=== PATIENT | male | born 1965 | race Caucasian/White ===

== ENCOUNTER 2022-01-06 08:20 | Outpatient (CLI) | payer OTHER | END 2022-01-06 08:21 | disposition home or self-care (01) | LOC: NAV RAD 08:20 | PROVIDERS: ATTEND Family Medicine | DX: M77.8 Other enthesopathies, not elsewhere classified (principal) ==

== ENCOUNTER 2022-02-11 08:36 | Emergency (ER) | payer MEDICAID, OTHER ==
[2022-02-11] MEDS ORDERED: Sodium Chloride 0.9% 100 ML ONE (09:39)
[2022-02-11] MEDS ORDERED: diphenhydrAMINE 50 MG/ML VIAL ONE (09:39)
[2022-02-11] MEDS ORDERED: Prochlorperazine 10 MG/2 ML VIAL ONE (09:39)
[2022-02-11] MEDS ORDERED: Ketorolac Tromethamine 30 MG/ML VIAL ONE (09:39)
[2022-02-11] MEDS ORDERED: Ketorolac Tromethamine 30 MG/ML VIAL IVP SCH (09:45)
[2022-02-11] MEDS ORDERED: Prochlorperazine 10 MG/2 ML VIAL IVP SCH (09:45)
[2022-02-11] MEDS ORDERED: diphenhydrAMINE 50 MG/ML VIAL IVP SCH (09:45)
== END 2022-02-11 10:45 | disposition home or self-care (01) ==
LOC: NAV ERS 08:36
DX: I10 Essential (primary) hypertension (principal); H55.00 Unspecified nystagmus; M25.511 Pain in right shoulder; E11.9 Type 2 diabetes mellitus without complications; Z79.84 Long term (current) use of oral hypoglycemic drugs; Z79.899 Other long term (current) drug therapy
CPT/HCPCS: 70450; 96365; 96375; J0780; J1200; J1885